=== PATIENT | female | born 1955 | race Caucasian/White ===

== ENCOUNTER → 2023-11-02 09:28 | Outpatient (REF) | payer MEDICARE, OTHER, SELFPAY | LOC: RCS 09:28 | PROVIDERS: ATTENDING PHYSICIAN Internal Medicine Cardiovascular Disease; FAMILY PHYSICIAN Internal Medicine | DX: I10 Essential (primary) hypertension (principal); R93.1 Abnormal findings on diagnostic imaging of heart and coronary circulation; R07.89 Other chest pain | CPT/HCPCS: 93017; 93350 ==

== ENCOUNTER → 2024-02-25 10:52 | Outpatient (REF) | payer MEDICARE, OTHER, SELFPAY | LOC: HWWDC 10:52 | PROVIDERS: ATTENDING PHYSICIAN Obstetrics & Gynecology; FAMILY PHYSICIAN Internal Medicine | DX: Z12.31 Encounter for screening mammogram for malignant neoplasm of breast (principal) | CPT/HCPCS: 77063; 77067 ==

== ENCOUNTER → 2024-10-03 13:51 | Outpatient (REF) | payer MEDICARE, OTHER, SELFPAY | LOC: HWRCS 13:51 | PROVIDERS: ATTENDING PHYSICIAN Internal Medicine Cardiovascular Disease; FAMILY PHYSICIAN Internal Medicine | DX: I48.0 Paroxysmal atrial fibrillation (principal) | CPT/HCPCS: 93306 ==

== ENCOUNTER 2024-10-06 06:50 | Outpatient (RCR) | payer MEDICARE, OTHER, SELFPAY | END 2024-10-06 23:59 | disposition home or self-care (01) | LOC: RPT 06:50 | PROVIDERS: ATTENDING PHYSICIAN Orthopaedic Surgery Orthopaedic Trauma; FAMILY PHYSICIAN Internal Medicine | DX: S42.351D Displaced comminuted fracture of shaft of humerus, right arm, subsequent encounter for fracture with routine healing (principal); S72.91XD Unspecified fracture of right femur, subsequent encounter for closed fracture with routine healing; S32.89XD Fracture of other parts of pelvis, subsequent encounter for fracture with routine healing; Z73.6 Limitation of activities due to disability | CPT/HCPCS: 97110; 97112; 97140; 97162 ==

== ENCOUNTER 2024-11-01 14:15 | Outpatient (RCR) | payer OTHER, MEDICARE, SELFPAY | END 2024-11-01 23:59 | disposition home or self-care (01) | LOC: ROT 14:15 | PROVIDERS: ATTENDING PHYSICIAN Orthopaedic Surgery Hand Surgery; FAMILY PHYSICIAN Internal Medicine | DX: M65.312 Trigger thumb, left thumb (principal); Z73.6 Limitation of activities due to disability; V49.9XXD Car occupant (driver) (passenger) injured in unspecified traffic accident, subsequent encounter | CPT/HCPCS: 97018; 97110; 97166; 97535 ==

== ENCOUNTER 2024-11-08 08:50 | Outpatient (RCR) | payer MEDICARE, OTHER, SELFPAY | END 2024-11-08 23:59 | disposition home or self-care (01) | LOC: RPT 08:50 | PROVIDERS: ATTENDING PHYSICIAN Orthopaedic Surgery Orthopaedic Trauma; FAMILY PHYSICIAN Internal Medicine | DX: S42.351D Displaced comminuted fracture of shaft of humerus, right arm, subsequent encounter for fracture with routine healing (principal); S72.91XD Unspecified fracture of right femur, subsequent encounter for closed fracture with routine healing; S32.89XD Fracture of other parts of pelvis, subsequent encounter for fracture with routine healing; Z73.6 Limitation of activities due to disability; R26.89 Other abnormalities of gait and mobility; M62.81 Muscle weakness (generalized) | CPT/HCPCS: 97110; 97112 ==

== ENCOUNTER → 2024-12-06 09:40 | Outpatient (REF) | payer MEDICARE, OTHER, SELFPAY | LOC: HWRAD 09:40 | PROVIDERS: ATTENDING PHYSICIAN Internal Medicine; FAMILY PHYSICIAN Internal Medicine | DX: M81.0 Age-related osteoporosis without current pathological fracture (principal) | CPT/HCPCS: 77080 ==

== ENCOUNTER 2024-12-08 10:21 | Outpatient (RCR) | payer MEDICARE, OTHER, SELFPAY | END 2024-12-08 23:59 | disposition home or self-care (01) | LOC: RPT 10:21 | PROVIDERS: ATTENDING PHYSICIAN Orthopaedic Surgery Orthopaedic Trauma; FAMILY PHYSICIAN Internal Medicine | DX: S42.351D Displaced comminuted fracture of shaft of humerus, right arm, subsequent encounter for fracture with routine healing (principal); S72.91XD Unspecified fracture of right femur, subsequent encounter for closed fracture with routine healing; S32.89XD Fracture of other parts of pelvis, subsequent encounter for fracture with routine healing; Z73.6 Limitation of activities due to disability; R26.89 Other abnormalities of gait and mobility; M62.81 Muscle weakness (generalized) | CPT/HCPCS: 97110; 97112; 97530 ==

== ENCOUNTER 2024-12-22 10:21 | Outpatient (RCR) | payer MEDICARE, OTHER, SELFPAY | END 2024-12-22 12:15 | disposition home or self-care (01) | LOC: RPT 10:21 | PROVIDERS: ATTENDING PHYSICIAN Orthopaedic Surgery Orthopaedic Trauma; FAMILY PHYSICIAN Internal Medicine | DX: S42.351D Displaced comminuted fracture of shaft of humerus, right arm, subsequent encounter for fracture with routine healing (principal); S72.91XD Unspecified fracture of right femur, subsequent encounter for closed fracture with routine healing; S32.89XD Fracture of other parts of pelvis, subsequent encounter for fracture with routine healing; Z73.6 Limitation of activities due to disability; R26.89 Other abnormalities of gait and mobility; M62.81 Muscle weakness (generalized) | CPT/HCPCS: 97110; 97112 ==

== ENCOUNTER 2025-02-07 08:56 | Outpatient (RCR) | payer MEDICARE, OTHER, SELFPAY | END 2025-02-07 23:59 | disposition home or self-care (01) | LOC: RPT 08:56 | PROVIDERS: ATTENDING PHYSICIAN Internal Medicine | DX: M54.2 Cervicalgia (principal); Z73.6 Limitation of activities due to disability | CPT/HCPCS: 97010; 97110; 97140; 97162 ==

== ENCOUNTER → 2025-02-26 07:30 | Outpatient (REF) | payer MEDICARE, OTHER, SELFPAY | LOC: HWWDC 07:30 | PROVIDERS: ATTENDING PHYSICIAN Obstetrics & Gynecology; FAMILY PHYSICIAN Internal Medicine | DX: Z12.31 Encounter for screening mammogram for malignant neoplasm of breast (principal) | CPT/HCPCS: 77063; 77067 ==

== ENCOUNTER 2025-03-06 10:11 | Outpatient (RCR) | payer MEDICARE, OTHER, SELFPAY | END 2025-03-06 23:59 | disposition home or self-care (01) | LOC: RPT 10:11 | PROVIDERS: ATTENDING PHYSICIAN Internal Medicine | DX: M54.2 Cervicalgia (principal); Z73.6 Limitation of activities due to disability | CPT/HCPCS: 97010; 97110; 97140 ==

== ENCOUNTER 2025-03-13 10:05 | Outpatient (RCR) | payer MEDICARE, OTHER, SELFPAY | END 2025-03-13 23:59 | disposition home or self-care (01) | LOC: RPT 10:05 | PROVIDERS: ATTENDING PHYSICIAN Internal Medicine | DX: M54.2 Cervicalgia (principal); Z73.6 Limitation of activities due to disability | CPT/HCPCS: 97110; 97140 ==

== ENCOUNTER → 2025-06-21 11:26 | Outpatient (REF) | payer MEDICARE, OTHER, SELFPAY | LOC: PAVMRI 11:26 | PROVIDERS: ATTENDING PHYSICIAN Specialist; FAMILY PHYSICIAN Internal Medicine | DX: D35.01 Benign neoplasm of right adrenal gland (principal) | CPT/HCPCS: 74183; A9585 ==